=== PATIENT | male | born 1990 | race Caucasian/White ===

== ENCOUNTER 2018-09-05 12:02 | Emergency (ER) | payer BC, OTHER ==
[~2018-09-05] VITALS: Ht 185.4 cm; Wt 94.0 kg
[2018-09-05 12:17] VITALS: Ht 185.4 cm; Wt 94.0 kg
[2018-09-05] MEDS ORDERED: PANTOPRAZOLE IV 80 MG in SOD CHLORIDE 0.9% 100 ML IVPB STA (13:18)
[2018-09-05] MEDS ORDERED: ONDANSETRON 4 MG INJ IV STA (13:18)
[2018-09-05] MEDS ORDERED: SOD CHLORIDE 0.9% 1,000 ML IV STA (13:18)
[2018-09-05] MEDS ORDERED: METOCLOPRAMIDE 10 MG INJ IV ONE (15:00)
[2018-09-05] MEDS ORDERED: FAMOTIDINE 20 MG TAB PO ONE (15:30)
[2018-09-05] MEDS ORDERED: OMEP40CA6 PO (15:35)
[2018-09-05] MEDS ORDERED: METO10TA92 PO (15:35)
[2018-09-05 15:59] VITALS: BP 108/78; PULSE 85; RESP 18
--- NOTE | 2018-09-05 17:43 | ERD ---
ER Documentation Chief Complaint Chief Complaint epigastric pain , vomitting x 3 days HPI 27-year-old male presenting with epigastric pain and vomiting for the past 3 days. He describes it as a burning, pressure-like pain that is nonradiating. He has had pain similar to this before and has been treated in the past for gastritis. He has never had an endoscopy. He complains of 8 out of 10 pain, nonradiating, with associated belching, nausea, and vomiting. Today he started noticing blood in his vomit. No melena or hematochezia. Last bowel movement was today and was normal. No fevers or chills. He was told that he has to see a city director in the past but never followed up. ROS All systems reviewed and are negative except as per history of present illness. Medications Home Meds Active Scripts Metoclopramide* (Reglan*) 10 Mg Tablet, 10 MG PO Q6 PRN for NAUSEA AND/OR VOMITING, #10 TAB Prov:NEO SAWYER MD 09/05/18 Omeprazole* (Omeprazole*) 40 Mg Capsule.dr, 40 MG PO DAILY, #30 CAP Prov:NEO SAWYER MD 09/05/18 Allergies Allergies: Coded Allergies: No Known Allergy (Unverified , 09/05/18) PMhx/Soc Medical and Surgical Hx: pt denies Medical Hx, pt denies Surgical Hx History of Surgery: No Anesthesia Reaction: No Hx Neurological Disorder: No Hx Respiratory Disorders: No Hx Cardiac Disorders: No Hx Psychiatric Problems: No Hx Miscellaneous Medical Probl: No Hx Alcohol Use: No Hx Substance Use: No Hx Tobacco Use: No Smoking Status: Never smoker FmHx Family History: No diabetes Physical Exam Vitals Vital Signs Date Temp Pulse Resp B/P (MAP) Pulse Ox O2 O2 Flow FiO2 Time Delivery Rate 09/05/18 85 18 108/78 100 Room Air 15:59 (88) 09/05/18 74 18 110/65 100 Room Air 14:58 (80) 09/05/18 98.7 87 19 125/61 96 12:17 (82) Physical Exam Const: Actively retching and vomiting Head: Atraumatic Eyes: Normal Conjunctiva ENT: Dry mucous membranes. Normal External Ears, Nose and Mouth. Neck: Full range of motion. No meningismus. Resp: Clear to auscultation bilaterally Cardio: Regular rate and rhythm, no murmurs. 2+ distal pulses Abd: Soft, non tender, non distended. Normal bowel sounds Skin: Pale. No petechiae or rashes Back: No midline or flank tenderness Ext: No cyanosis, or edema Neur: Awake and alert, normal speech, no facial asymmetry, moving all extremities Psych: Normal Mood and Affect Result Diagram: 09/05/18 1327 09/05/18 1327 Results 24 hrs Laboratory Tests Test 09/05/18 13:27 White Blood Count 13.2 10^3/ul Red Blood Count 4.93 10^6/ul Hemoglobin 15.6 g/dl Hematocrit 42.5 % Mean Corpuscular Volume 86.2 fl Mean Corpuscular Hemoglobin 31.6 pg Mean Corpuscular Hemoglobin Concent 36.7 g/dl Red Cell Distribution Width 11.8 % Platelet Count 255 10^3/UL Mean Platelet Volume 9.8 fl Immature Granulocytes % 0.500 % Neutrophils % 88.6 % Lymphocytes % 8.2 % Monocytes % 2.3 % Eosinophils % 0.1 % Basophils % 0.3 % Nucleated Red Blood Cells % 0.0 /100WBC Immature Granulocytes # 0.070 10^3/ul Neutrophils # 11.7 10^3/ul Lymphocytes # 1.1 10^3/ul Monocytes # 0.3 10^3/ul Eosinophils # 0.0 10^3/ul Basophils # 0.0 10^3/ul Nucleated Red Blood Cells # 0.0 10^3/ul Prothrombin Time 13.4 Sec Prothrombin Time Ratio 1.0 INR International Normalized Ratio 1.01 Activated Partial Thromboplast Time 26.4 Sec Sodium Level 143 mmol/L Potassium Level 3.5 mmol/L Chloride Level 104 mmol/L Carbon Dioxide Level 27 mmol/L Anion Gap 12 Blood Urea Nitrogen 18 mg/dl Creatinine 0.74 mg/dl Est Glomerular Filtrat Rate mL/min > 60 mL/min Glucose Level 161 mg/dl Calcium Level 9.7 mg/dl Total Bilirubin 0.9 mg/dl Direct Bilirubin 0.00 mg/dl Indirect Bilirubin 0.9 mg/dl Aspartate Amino Transf (AST/SGOT) 24 IU/L Alanine Aminotransferase (ALT/SGPT) 17 IU/L Alkaline Phosphatase 121 IU/L Troponin I < 0.012 ng/ml Total Protein 8.1 g/dl Albumin 4.9 g/dl Globulin 3.20 g/dl Albumin/Globulin Ratio 1.53 Lipase 74 U/L Current Medications Medications Dose Sig/Judah Start Time Status Last (Trade) Ordered Route PRN Stop Time Admin Dose Reason Admin Sodium 1,000 ml @ Q1H STAT 09/05/18 DC 09/05/18 Chloride 1,000 mls/hr IV 13:18 09/05/18 13:27 14:17 Pantoprazole 100 ml @ ONCE STAT 09/05/18 DC 09/05/18 80 mg/Sodium 400 mls/hr IVPB 13:18 09/05/18 13:39 Chloride 13:32 Ondansetron 4 mg ONCE STAT 09/05/18 DC 09/05/18 HCl (Zofran IV 13:18 09/05/18 13:28 Inj) 13:20 10 mg ONCE ONCE 09/05/18 DC 09/05/18 Metoclopramid IV 15:00 09/05/18 14:46 e HCl 15:01 (Reglan) Famotidine 40 mg ONCE ONCE 09/05/18 DC 09/05/18 (Pepcid) PO 15:30 09/05/18 15:29 15:31 Procedures/MDM EMERGENT LABS AND DIAGNOSTIC STUDIES: Lab Results above were reviewed and interpreted by me. CBC: leukocytosis, likely stress response. no e/o severe anemia CMP: No evidence of electrolyte abnormality, renal failure, hypoglycemia, liver failure, or biliary obstruction Lipase: no evidence of pancreatitis 12-lead EKG was interpreted by Julien Sawyer MD: Normal Sinus Rhythm Normal axis Normal intervals No acute ST or T wave changes suggestive of acute ischemia or STEMI. Radiology Results as interpreted by Radiology below were reviewed by James Sawyer MD: Chest x-ray shows no acute abnormalities, no free air under diaphragm Initial Nursing notes reviewed. Previous Medical Records requested via the Electronic Health Record. EMERGENCY DEPARTMENT COURSE / MEDICAL DECISION MAKING: Patient is presenting with epigastric pain and vomiting with hematemesis. Differential includes but is not limited to biliary colic, biliary obstruction, acute cholecystitis, pancreatitis, hepatitis, lower lobe pneumonia, gastritis, colitis, cardiac pathology, aortic dissection, ureterolithiasis, pyelonephritis. Labs were ordered to evaluate for above and were only remarkable for mild leukocytosis, otherwise normal. Patient was treated with IV fluids, antiemetics, and Protonix. Upon reevaluation, he does feel much better. He is able to tolerate fluids by mouth. I recommended discharge with PPI and antiemetics. I have a low suspicion for Boerhaave's. Bleeding is likely secondary to ulcer versus Marcy-Granger tear. Recommended follow-up with a GI doctor for endoscopy. Patient already has an appointment with his primary care doctor next week for referral. Return precautions given. Patient's blood pressure was elevated (>120/80) but appears stable without evidence of hypertensive emergency or urgency. The patient was counseled about the risks of hypertension and urged to pursue outpatient monitoring and therapy within a week with their primary care physician. Departure Diagnosis: Primary Impression: Acute vomiting Additional Impressions: Gastritis Gastritis type: unspecified gastritis Chronicity: chronic Gastritis bleeding: with bleeding Qualified Codes: K29.51 - Unspecified chronic gastritis with bleeding Hematemesis Nausea presence: with nausea Qualified Codes: K92.0 - Hematemesis Condition: Stable Patient Instructions: Gi Bleed, Upper (Stable), Gastritis Vs. Ulcer, Vomiting (6Y-Adult) Additional Instructions: Return to the ER for any worsening symptoms. NEO SAWYER MD Sep 05, 2018 17:43
== END 2018-09-05 16:24 | disposition home or self-care (01) ==
LOC: FTE 12:02 → E/R 16:24
DX: K29.51 Unspecified chronic gastritis with bleeding (principal); K92.0 Hematemesis
CPT/HCPCS: 36415; 71045; 80053; 83690; 84484; 85025; 85610; 85730; 86850; 86900; 86901; 93005; 96374; 96375; C9113; J2405; J2765; J7030; Z7502; Z7610

== ENCOUNTER 2018-09-14 04:45 | Emergency (ER) | payer OTHER ==
[~2018-09-14] VITALS: Wt 89.3 kg
[~2018-09-14 04:45] MED LIST: METO10TA92 PO; OMEP40CA6 PO
[2018-09-14] MEDS ORDERED: ONDANSETRON 4 MG INJ IV STA (06:17)
[2018-09-14] MEDS ORDERED: SOD CHLORIDE 0.9% 1,000 ML IV STA (06:17)
[2018-09-14] MEDS ORDERED: ONDA4TAB14 PO (07:23)
[2018-09-14] MEDS ORDERED: FAMO-96 PO (07:23)
--- NOTE | 2018-09-14 07:28 | ERD ---
ER Documentation Chief Complaint Chief Complaint c/o vomiting x's 5 days; hx of canibinoid hyperemesis HPI 27-year-old male presenting with vomiting times 5 days. Patient has had a long history of vomiting like this before and states he normally takes Zofran however he ran out. He denies any abdominal pain. He is waiting for referral for GI specialist. Denies any fevers. Denies medical problems. NKDA. Surgical history denies. Social history smokes cigarettes. ROS All systems reviewed and are negative except as per history of present illness. Medications Home Meds Active Scripts Famotidine* (Pepcid*) 20 Mg Tablet, 20 MG PO BID for 4 Days, #30 TAB Prov:ALLAN PAREHK PA-C 09/14/18 Ondansetron (Ondansetron Odt) 4 Mg Tab.rapdis, 4 MG PO Q6H PRN for NAUSEA AND/OR VOMITING, #10 TAB Prov:ALLAN PAREKH PA-C 09/14/18 Metoclopramide* (Reglan*) 10 Mg Tablet, 10 MG PO Q6 PRN for NAUSEA AND/OR VOMITING, #10 TAB Prov:NEO AGUILAR MD 09/05/18 Omeprazole* (Omeprazole*) 40 Mg Capsule.dr, 40 MG PO DAILY, #30 CAP Prov:NEO AGUILAR MD 09/05/18 Allergies Allergies: Coded Allergies: No Known Allergy (Unverified , 09/05/18) PMhx/Soc Medical and Surgical Hx: pt denies Medical Hx, pt denies Surgical Hx History of Surgery: No Anesthesia Reaction: No Hx Neurological Disorder: No Hx Respiratory Disorders: No Hx Cardiac Disorders: No Hx Psychiatric Problems: No Hx Miscellaneous Medical Probl: No Hx Alcohol Use: Yes Hx Substance Use: Yes (marijuana) Hx Tobacco Use: No Smoking Status: Current some day smoker FmHx Family History: No diabetes, No coronary disease, No other Physical Exam Vitals Vital Signs Date Temp Pulse Resp B/P (MAP) Pulse Ox O2 O2 Flow FiO2 Time Delivery Rate 09/14/18 99.0 124 18 133/92 99 04:50 (106) Physical Exam GENERAL: The patient is well-appearing, well-nourished, in no acute distress HEENT: Atraumatic. Conjunctivae are pink. Pupils equal, round, and reactive to light. There is no scleral icterus. Tympanic membranes clear bilaterally. Oropharynx clear. CHEST: Clear to auscultation bilaterally. There are no rales, wheezes or rhonchi. HEART: Regular rate and rhythm. No murmurs, clicks, rubs or gallops. ABDOMEN:Soft, nontender and nondistended. Good bowel sounds. No rebound or guarding. No gross peritonitis. No gross organomegaly or masses. Result Diagram: 09/14/18 0632 09/14/18 0632 Results 24 hrs Laboratory Tests Test 09/14/18 06:32 White Blood Count 6.2 10^3/ul Red Blood Count 5.10 10^6/ul Hemoglobin 15.9 g/dl Hematocrit 43.5 % Mean Corpuscular Volume 85.3 fl Mean Corpuscular Hemoglobin 31.2 pg Mean Corpuscular Hemoglobin Concent 36.6 g/dl Red Cell Distribution Width 11.6 % Platelet Count 248 10^3/UL Mean Platelet Volume 9.9 fl Immature Granulocytes % 0.300 % Neutrophils % 77.9 % Lymphocytes % 14.7 % Monocytes % 6.8 % Eosinophils % 0.0 % Basophils % 0.3 % Nucleated Red Blood Cells % 0.0 /100WBC Immature Granulocytes # 0.020 10^3/ul Neutrophils # 4.8 10^3/ul Lymphocytes # 0.9 10^3/ul Monocytes # 0.4 10^3/ul Eosinophils # 0.0 10^3/ul Basophils # 0.0 10^3/ul Nucleated Red Blood Cells # 0.0 10^3/ul Urine Color NAKIA Urine Clarity CLOUDY Urine pH 6.0 Urine Specific [place] 1.021 Urine Ketones 2+ mg/dL Urine Nitrite NEGATIVE mg/dL Urine Bilirubin NEGATIVE mg/dL Urine Urobilinogen 2+ mg/dL Urine Leukocyte Esterase NEGATIVE Janny/ul Urine Microscopic RBC 1 /HPF Urine Microscopic WBC 6 /HPF Urine Bacteria FEW /HPF Urine Mucus MANY /HPF Urine Hemoglobin NEGATIVE mg/dL Urine Glucose NEGATIVE mg/dL Urine Total Protein NEGATIVE mg/dl Sodium Level 140 mmol/L Potassium Level 4.0 mmol/L Chloride Level 99 mmol/L Carbon Dioxide Level 25 mmol/L Anion Gap 16 Blood Urea Nitrogen 14 mg/dl Creatinine 0.67 mg/dl Est Glomerular Filtrat Rate mL/min > 60 mL/min Glucose Level 144 mg/dl Calcium Level 9.7 mg/dl Total Bilirubin 1.1 mg/dl Direct Bilirubin 0.00 mg/dl Indirect Bilirubin 1.1 mg/dl Aspartate Amino Transf (AST/SGOT) 21 IU/L Alanine Aminotransferase (ALT/SGPT) 15 IU/L Alkaline Phosphatase 91 IU/L Total Protein 8.0 g/dl Albumin 4.8 g/dl Globulin 3.20 g/dl Albumin/Globulin Ratio 1.50 Lipase 267 U/L Current Medications Medications Dose Sig/Judah Start Time Status Last (Trade) Ordered Route PRN Stop Time Admin Dose Reason Admin Sodium 1,000 ml @ Q1H STAT 09/14/18 DC 09/14/18 Chloride 1,000 mls/hr IV 06:17 06:41 09/14/18 07:16 Ondansetron 4 mg ONCE STAT 09/14/18 DC 09/14/18 HCl (Zofran IV 06:17 06:41 Inj) 09/14/18 06:18 Procedures/MDM ER Course: 1L NS and IV zofran given in ED MDM: 27-year-old male presenting with vomiting. Patient's blood work is within normal limits and I have low suspicion for acute abdominal emergency. Patient's blood work does not show signs of dehydration. Patient is discharged with supportive medications. He states that in the past Zofran has helped his symptoms however he just ran out. Patient will be discharged with medication and told to follow-up with primary care and requests referral for GI specialist. I have low suspicion for meningitis or sepsis. Patient is discharged with strict ER precautions. All questions answered at discharge Departure Diagnosis: Primary Impression: Vomiting Condition: Stable Patient Instructions: Vomiting (8Y-Adult) Referrals: [facility] YOU HAVE RECEIVED A MEDICAL SCREENING EXAM AND THE RESULTS INDICATE THAT YOU DO NOT HAVE A CONDITION THAT REQUIRES URGENT TREATMENT IN THE EMERGENCY DEPARTMENT. FURTHER EVALUATION AND TREATMENT OF YOUR CONDITION CAN WAIT UNTIL YOU ARE SEEN IN YOUR DOCTORS OFFICE WITHIN THE NEXT 1-2 DAYS. IT IS YOUR RESPONSIBILITY TO MAKE AN APPOINTMENT FOR FOLOW-UP CARE. IF YOU HAVE A PRIMARY DOCTOR --you should call your primary doctor and schedule an appointment IF YOU DO NOT HAVE A PRIMARY DOCTOR YOU CAN CALL OUR PHYSICIAN REFERRAL HOTLINE AT IF YOU CAN NOT AFFORD TO SEE A PHYSICIAN YOU CAN CHOSE FROM THE FOLLOWING [facility] [address] [facility] [address] [facility] [facility] [address] [facility] [address] [facility] [facility] [address] [facility] [facility] [address] Additional Instructions: FOLLOW UP WITH YOUR PRIMARY CARE PHYSICIAN TOMORROW.Return to this facility if you are not improving as expected. ALLAN PAREKH PA-C Sep 14, 2018 07:28
[2018-09-14 07:32] VITALS: BP 116/70; PULSE 66; RESP 18
== END 2018-09-14 07:35 | disposition home or self-care (01) ==
LOC: FTE 04:45
DX: R11.10 Vomiting, unspecified (principal); F17.210 Nicotine dependence, cigarettes, uncomplicated
CPT/HCPCS: 36415; 80053; 81001; 83690; 85025; 96361; 96374; J2405; J7030; Z7502